=== PATIENT | female | born 1930 | race Caucasian/White ===

== ENCOUNTER 2016-04-27 09:06 | Outpatient (CLI) | payer MEDICARE, OTHER ==
[2016-04-27 12:35] LABS: #Basophils 0.1 thou/uL (0.0-0.2); #Eosinphils 0.2 thou/uL (0.0-0.7); #Lymphocytes 0.6 thou/uL (1.20-3.40); #Monocytes 0.5 thou/uL (0.11-0.59); %Basophils 0.9 % (0.0-1.0); %Lymphocytes 9.5 % (21.0-51.0); %Monocytes 7.8 % (0.0-10.0); %Neutrophils 78.8 % (42.0-75.0); Mean Corpuscular Hemoglobin 25.5 pg (27.0-31.0); Mean Corpuscular Volume 82.2 fl (81.0-99.0); Mean Platelet Volume 6.5 fL (7.4-10.4); Platelet Count 252 thou/uL (130-400); RBC Distribution Width 14.4 % (11.5-14.5); White Blood Cell (WBC) Count 6.4 thou/uL (4.8-10.8)
[2016-04-27 12:57] LABS: ALT (SGPT) 10 U/L (0-55); AST (SGOT) 15 U/L (5-34); Albumin 3.6 g/dL (3.4-4.8); Alkaline Phosphatase 83 U/L (40-150); Anion Gap 14 mmol/L (10-20); BUN (Urea Nitrogen) 26 mg/dL (9.8-20.1); Bilirubin, Direct 0.2 mg/dL (0.1-0.3); Bilirubin, Total 0.3 mg/dL (0.2-1.2); Calc. Creatinine Clearance 0 mL/min (70-130); Calcium 8.8 mg/dL (7.8-10.44); Carbon Dioxide 30 mmol/L (23-31); Cardiac Risk 3.4 (Less than 4.5); Chloride 98 mmol/L (98-107); Cholesterol 151 mg/dL (< 200 Desired); Estimated GFR-MDRD 80; Glucose 97 mg/dL (83-110); HDL Cholesterol 44 mg/dL (>60 Neg Risk); LDL Cholesterol, Calculated 86 mg/dL; Potassium 4.4 mmol/L (3.5-5.1); Protein, Total 7.1 g/dL (5.8-8.1); Sodium 138 mmol/L (136-145); Triglycerides 106 mg/dL (Less than 150)
[2016-04-27 13:06] LABS: Hemoglobin A1c 5.8 % (4.0-6.0)
== END 2016-04-27 09:07 | disposition home or self-care (01) ==
LOC: NAVSJIPCSP 09:06
PROVIDERS: ATTEND Family Medicine
DX: I10 Essential (primary) hypertension (principal)
CPT/HCPCS: 36415; 80048; 80061; 80076; 83036; 84443; 85025

== ENCOUNTER 2016-08-26 10:20 | Outpatient (CLI) | payer MEDICARE, OTHER ==
[2016-08-26 12:47] LABS: ALT (SGPT) 9 U/L (8-55); AST (SGOT) 16 U/L (5-34); Albumin 3.6 g/dL (3.4-4.8); Alkaline Phosphatase 85 U/L (40-150); Anion Gap 15 mmol/L (10-20); BUN (Urea Nitrogen) 29 mg/dL (9.8-20.1); Bilirubin, Direct 0.2 mg/dL (0.1-0.3); Bilirubin, Total 0.4 mg/dL (0.2-1.2); Calc. Creatinine Clearance 0 mL/min (70-130); Calcium 9.3 mg/dL (7.8-10.44); Carbon Dioxide 29 mmol/L (23-31); Cardiac Risk 3.4 (Less than 4.5); Chloride 97 mmol/L (98-107); Cholesterol 137 mg/dl (< 200 Desired); Estimated GFR-MDRD 82; Glucose 103 mg/dL (83-110); HDL Cholesterol 40 mg/dL (>60 Neg Risk); LDL Cholesterol, Calculated 79 mg/dL; Potassium 4.7 mmol/L (3.5-5.1); Sodium 136 mmol/L (136-145); Triglycerides 89 mg/dL (Less than 150)
[2016-08-26 13:58] LABS: #Basophils 0.1 thou/uL (0.0-0.2); #Eosinphils 0.2 thou/uL (0.0-0.7); #Lymphocytes 0.5 thou/uL (1.20-3.40); #Monocytes 0.7 thou/uL (0.11-0.59); #Neutrophils 5.7 thou/uL (1.40-6.50); %Basophils 1.6 % (0.0-1.0); %Lymphocytes 7.1 % (21.0-51.0); %Monocytes 9.4 % (0.0-10.0); %Neutrophils 78.9 % (42.0-75.0); Hemoglobin 11.7 g/dL (12.0-16.0); Mean Corpuscular HGB CONC 30.8 g/dL (32.0-36.0); Mean Corpuscular Hemoglobin 24.9 pg (27.0-31.0); Mean Corpuscular Volume 80.8 fl (81.0-99.0); Mean Platelet Volume 7.3 fL (7.4-10.4); Platelet Count 268 thou/uL (130-400); RBC Distribution Width 13.6 % (11.5-14.5); Red Blood Cell (RBC) Count 4.71 mill/uL (4.20-5.40); White Blood Cell (WBC) Count 7.2 thou/uL (4.8-10.8)
[2016-08-26 13:59] LABS: Anisocytosis SLIGHT = 6-15 cells (100X) (0-5/hpf); MDiff Complete? YES; PLT Morphology Comment Appears Adequate
== END 2016-08-26 10:21 ==
LOC: NAVSJIPCSP 10:20
PROVIDERS: ATTEND Family Medicine
DX: E11.51 Type 2 diabetes mellitus with diabetic peripheral angiopathy without gangrene (principal); I10 Essential (primary) hypertension; H83.2X9 Labyrinthine dysfunction, unspecified ear; Z79.899 Other long term (current) drug therapy
CPT/HCPCS: 36415; 80048; 80061; 80076; 83036; 84443; 85025

== ENCOUNTER 2016-08-27 13:27 | Outpatient (CLI) | payer MEDICARE, OTHER ==
[2016-08-27 20:09] LABS: Bilirubin Negative (Negative); Blood, Urine Negative (Negative); Glucose, Urine (Dipstick) Negative (Negative); Leukocyte Moderate (Negative); Nitrite Positive (Negative); Protein, Urine (Dipstick) Negative (Neg-Trace); Specific Gravity, Urine 1.015 (1.005-1.030); Urobilinogen 0.2 mg/dL (0.2-1.0); pH, Urine 6.5 (5.0-9.0)
[2016-08-27 20:31] LABS: Clarity SL HAZY (Clear)
[2016-08-27 20:43] LABS: Bacteria/HPF 4+ HPF (None Seen)
== END 2016-08-27 13:28 | disposition home or self-care (01) ==
LOC: NAVSJIPCSP 13:27
PROVIDERS: ATTEND Family Medicine
DX: E11.51 Type 2 diabetes mellitus with diabetic peripheral angiopathy without gangrene (principal); H83.2X9 Labyrinthine dysfunction, unspecified ear; I10 Essential (primary) hypertension; Z79.899 Other long term (current) drug therapy
CPT/HCPCS: 81003; 81015

== ENCOUNTER 2017-09-08 00:46 | Emergency (ER) | payer MEDICARE, OTHER ==
[2017-09-08] MEDS ORDERED: Lidocaine 1% w/Epinephrine 1:100K 30 ML VIAL ONE (01:26)
[2017-09-08] MEDS ORDERED: Meclizine HCl 25 MG TAB ONE (02:07)
== END 2017-09-08 02:13 | disposition home or self-care (01) ==
LOC: NAV ERS 00:46
DX: S51.011A Laceration without foreign body of right elbow, initial encounter (principal); W18.30XA Fall on same level, unspecified, initial encounter
CPT/HCPCS: 99282; J2001

== ENCOUNTER 2018-02-05 12:11 | Emergency (ER) | payer MEDICARE, OTHER ==
[2018-02-05] MEDS ORDERED: Bacitracin Zinc 1 Packet ONE (12:27)
--- NOTE | 2018-02-05 14:46 | CT ---
NONCONTRAST CT HEAD: DATE: 02/05/2018. HISTORY: Injury. The patient fell 7 hours ago and hit forehead. Neck pain. COMPARISON: 01/17/2015. FINDINGS: Again noted is decreased attenuation in the periventricular white matter likely attributable to chron ic small-vessel ischemic changes. Linear low-density area in the right lentiform nucleus is likely r elated to remote lacunar infarction. There is no evidence of an acute cortical infarction, hemorrhag e, mass effect, or midline shift. Mild cerebral volume loss is present. The ventricular system is n ormal in size, shape, and position for the degree of sulcal atrophy. There is mucosal thickening seen in several ethmoidal air cells bilaterally. Minimal mucosal thicken ing is seen in each maxillary antrum. Mastoid air cells are clear. No calvarial fracture is identif ied. There is scalp soft tissue swelling in the anterior frontal region greater just to the right of midline. No depressed calvarial fracture is seen. IMPRESSION: 1. No acute intracranial abnormality is demonstrated. 2. Chronic small-vessel ischemic changes and cerebral volume loss. 3. 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 4. Sinus disease. 5. Anterior frontal scalp hematoma. POS: [facility]
--- NOTE | 2018-02-05 14:50 | CT ---
CT CERVICAL SPINE NONCONTRAST: HISTORY: Fall. Neck injury. COMPARISON: 04/21/2013. FINDINGS: Vertebral body heights are maintained. Minimal degenerative spondylolisthesis at the C3-4 level is a gain demonstrated. Osteophytosis throughout the vertebral bodies and facets. No acute fracture or d islocation. Cervicothoracic junction is intact. IMPRESSION: Degenerative changes cervical spine. No acute osseous abnormalities are demonstrated. POS: [facility]
--- NOTE | 2018-02-05 15:23 | RAD ---
LEFT ELBOW 2 VIEWS: HISTORY: Fall. Left elbow injury. FINDINGS: Radiocapitellar alignment is maintained. Soft tissue laceration may be present posteriorly. Mild os teophytosis. No displaced fractures are apparent. Osseous structures are demineralized. IMPRESSION: 1. Osteoporosis. Mild degenerative changes. 2. No acute osseous abnormalities are demonstrated. POS: [facility]
== END 2018-02-05 13:49 | disposition home or self-care (01) ==
LOC: NAV ERS 12:11
DX: S01.01XA Laceration without foreign body of scalp, initial encounter (principal); S51.012A Laceration without foreign body of left elbow, initial encounter; I10 Essential (primary) hypertension; E11.39 Type 2 diabetes mellitus with other diabetic ophthalmic complication; H42 Glaucoma in diseases classified elsewhere; Z86.73 Personal history of transient ischemic attack (TIA), and cerebral infarction without residual deficits; Z79.899 Other long term (current) drug therapy; Z79.84 Long term (current) use of oral hypoglycemic drugs; Z87.891 Personal history of nicotine dependence; W22.03XA Walked into furniture, initial encounter
CPT/HCPCS: 70450; 72125

== ENCOUNTER 2018-07-25 22:01 | Emergency (ER) | payer MEDICARE, OTHER | END 2018-07-25 22:56 | disposition home or self-care (01) | LOC: NAV ERS 22:01 | DX: S51.811A Laceration without foreign body of right forearm, initial encounter (principal); I10 Essential (primary) hypertension; E11.9 Type 2 diabetes mellitus without complications; W26.8XXA Contact with other sharp object(s), not elsewhere classified, initial encounter; Z86.73 Personal history of transient ischemic attack (TIA), and cerebral infarction without residual deficits ==

== ENCOUNTER 2019-03-09 20:15 | Inpatient (IN) | payer MEDICARE, OTHER ==
[2019-03-09 20:52] VITALS: BMI 28.0
[2019-03-09] MEDS ORDERED: Bisacodyl 10 MG SUPP PR PRN (22:06)
[2019-03-09] MEDS ORDERED: Artificial Tear Sol 15 ML BOT EA EYE PRN (22:06)
[2019-03-09] MEDS ORDERED: cloNIDine 0.1 MG TAB PO PRN (22:07)
[2019-03-09] MEDS ORDERED: traZODone HCl 50 MG TAB PO SCH (22:15)
[2019-03-09] MEDS ORDERED: Timolol 0.5% Ophth Soln 5 ml Bottle EA EYE SCH (22:15)
[2019-03-09] MEDS ORDERED: Carvedilol 25 MG TAB PO SCH (22:15)
[2019-03-09] MEDS ORDERED: Latanoprost 0.005% Ophth Soln 2.5 ml Bottle EA EYE SCH (22:15)
[2019-03-10 05:21] LABS: #Basophils 0.1 thou/uL (0.0-0.2); #Eosinphils 0.1 thou/uL (0.0-0.7); #Lymphocytes 0.4 thou/uL (1.20-3.40); #Monocytes 0.7 thou/uL (0.11-0.59); #Neutrophils 6.3 thou/uL (1.40-6.50); %Basophils 0.7 % (0.0-1.0); %Lymphocytes 5.1 % (21.0-51.0); %Monocytes 9.6 % (0.0-10.0); %Neutrophils 83.6 % (42.0-75.0); Hemoglobin 9.8 g/dL (12.0-16.0); Mean Corpuscular HGB CONC 31.4 g/dL (32.0-36.0); Mean Corpuscular Hemoglobin 25.1 pg (27.0-31.0); Mean Corpuscular Volume 80.1 fL (78.0-98.0); Mean Platelet Volume 6.6 fL (7.4-10.4); Platelet Count 233 thou/uL (130-400); RBC Distribution Width 14.4 % (11.5-14.5); Red Blood Cell (RBC) Count 3.91 mill/uL (4.20-5.40); White Blood Cell (WBC) Count 7.6 thou/uL (4.8-10.8)
[2019-03-10 05:31] LABS: ALT (SGPT) 19 U/L (8-55); AST (SGOT) 22 U/L (5-34); Albumin 2.9 g/dL (3.4-4.8); Alkaline Phosphatase 55 U/L (40-110); Anion Gap 15 mmol/L (10-20); BUN (Urea Nitrogen) 8 mg/dL (9.8-20.1); Bilirubin, Total 0.6 mg/dL (0.2-1.2); Calc. Creatinine Clearance 80 mL/min (70-130); Calcium 8.1 mg/dL (7.8-10.44); Carbon Dioxide 25 mmol/L (23-31); Chloride 96 mmol/L (98-107); Estimated GFR-MDRD Greater than 90; Glucose 127 mg/dL (83-110); Protein, Total 5.9 g/dL (6.0-8.3)
[2019-03-10 05:37] LABS: Sodium 133 mmol/L (136-145)
[2019-03-10 05:38] LABS: Potassium 2.6 mmol/L (3.5-5.1)
[2019-03-10] MEDS ORDERED: levETIRAcetam 500 MG TAB PO SCH (09:00)
[2019-03-10] MEDS: Amlodipine 5 MG TAB PO SCH (09:14)
[2019-03-10] MEDS: Carvedilol 25 MG TAB PO SCH ×2 (09:16→21:04)
[2019-03-10] MEDS: metFORMIN 500 MG TAB PO SCH ×3 (09:16→17:53)
[2019-03-10] MEDS: Lisinopril 20 MG TAB PO SCH ×2 (09:17→21:05)
[2019-03-10] MEDS: Timolol 0.5% Ophth Soln 5 ml Bottle EA EYE SCH ×2 (09:19→21:03)
[2019-03-10] MEDS: Potassium Chloride 20 MEQ TAB PO SCH ×2 (09:24→17:51)
[2019-03-10] MEDS ORDERED: Cyanocobalamin (Vitamin B-12) 1,000 MCG TAB PO SCH (12:00)
[2019-03-10] MEDS ORDERED: Bisacodyl 10 MG SUPP PR PRN (14:24)
[2019-03-10] MEDS ORDERED: OPTH EA EYE PRN (14:24)
[2019-03-10] MEDS ORDERED: ARTIFICIAL TEAR EA EYE PRN (14:24)
[2019-03-10] MEDS ORDERED: cloNIDine 0.1 MG TAB PO PRN (14:24)
[2019-03-10] MEDS ORDERED: [UNRECOGNIZED DRUG - OTHER] PO SCH (14:30)
[2019-03-10] MEDS ORDERED: Ondansetron ODT 4 MG TAB PO PRN (14:42)
[2019-03-10] MEDS ORDERED: Atorvastatin Calcium 10 MG TAB PO SCH (17:00)
[2019-03-10] MEDS ORDERED: metFORMIN 500 MG TAB PO SCH (17:00)
[2019-03-10] MEDS: Cyanocobalamin (Vitamin B-12) 1,000 MCG TAB PO SCH (17:52)
[2019-03-10] MEDS: Atorvastatin Calcium 10 MG TAB PO SCH (17:53)
[2019-03-10] MEDS ORDERED: Lisinopril 20 MG TAB PO SCH (21:00)
[2019-03-10] MEDS ORDERED: traZODone HCl 50 MG TAB PO SCH (21:00)
[2019-03-10] MEDS ORDERED: Timolol 0.5% Ophth Soln 5 ml Bottle EA EYE SCH (21:00)
[2019-03-10] MEDS ORDERED: Carvedilol 25 MG TAB PO SCH (21:00)
[2019-03-10] MEDS: Latanoprost 0.005% Ophth Soln 2.5 ml Bottle EA EYE SCH (21:02)
[2019-03-10] MEDS: traZODone HCl 50 MG TAB PO SCH (21:03)
[2019-03-10] MEDS: levETIRAcetam 500 MG TAB PO SCH (21:03)
[2019-03-11] MEDS ORDERED: Non-Formulary Item 1 EACH (Cholecalciferol (Vitamin D3) [Vitamin D] 1,000 UNIT) PO SCH (09:00)
[2019-03-11] MEDS ORDERED: Amlodipine 5 MG TAB PO SCH (09:00)
[2019-03-11] MEDS ORDERED: Non-Formulary Item 1 EACH (Sertraline Hcl [Zoloft] 50 MG) PO SCH (09:00)
[2019-03-11] MEDS ORDERED: Latanoprost 0.005% Ophth Soln 2.5 ml Bottle EA EYE SCH (09:00)
[2019-03-11] MEDS: metFORMIN 500 MG TAB PO SCH ×3 (10:10→17:39)
[2019-03-11] MEDS: Potassium Chloride 20 MEQ TAB PO SCH ×2 (10:11→17:39)
[2019-03-11] MEDS: Amlodipine 5 MG TAB PO SCH (10:12)
[2019-03-11] MEDS: Carvedilol 25 MG TAB PO SCH ×2 (10:13→20:39)
[2019-03-11] MEDS: Lisinopril 20 MG TAB PO SCH ×2 (10:19→20:39)
[2019-03-11] MEDS: levETIRAcetam 500 MG TAB PO SCH ×2 (10:20→20:40)
[2019-03-11] MEDS: Timolol 0.5% Ophth Soln 5 ml Bottle EA EYE SCH ×2 (10:20→20:39)
[2019-03-11] MEDS ORDERED: Famotidine 20 MG TAB PO SCH (11:00)
--- NOTE | 2019-03-11 11:01 | PRG ---
DATE OF SERVICE: 03/11/2019 SUBJECTIVE: Ms. Delcid is resting in bed and has her eyes open, but is nonverbal. Her family is in the room, and they state that this is baseline for her at present. She pretty good encouragement. No other concerns or questions. OBJECTIVE: VITAL SIGNS: She is afebrile. Heart rate 97, respirations 18, oxygen saturation 93% on room air, and blood pressure 163/73. CARDIOVASCULAR SYSTEM: S1 and S2 plus. RESPIRATORY SYSTEM: Normal vesicular breath sounds heard in all lung allan. ABDOMEN: Soft, nontender. Bowel sounds heard in all quadrants. EXTREMITIES: Without cyanosis or clubbing. CENTRAL NERVOUS SYSTEM: Awake, but nonverbal. Does follow simple commands. IMPRESSION: 1. Left subdural hematoma and multiple intracranial hemorrhages due to fall. 2. History of right-sided cerebrovascular accident. 3. Diabetes mellitus type 2. 4. Hypertension. 5. Dyslipidemia. 6. Anxiety and depression. PLAN: 1. Continue current medications. 2. 1800-calorie heart-healthy ADA diet with aspiration precautions. 3. Oral hygiene. 4. PlexiPulses. 5. Seizure precautions. 6. Monitor neuro status. 7. Physical therapy. 8. DVT prophylaxis with PlexiPulses. 9. Decubitus precautions. 10. Stress ulcer prophylaxis. We will add Pepcid. 11. Hypokalemia. She is on potassium b.i.d. We will recheck levels tomorrow. Discussed with the patient and family in detail. All questions answered. Job ID: [id number]
[2019-03-11] MEDS: Atorvastatin Calcium 10 MG TAB PO SCH (17:39)
[2019-03-11] MEDS: traZODone HCl 50 MG TAB PO SCH (20:39)
[2019-03-11] MEDS: Latanoprost 0.005% Ophth Soln 2.5 ml Bottle EA EYE SCH (20:39)
[2019-03-11] MEDS: Famotidine 20 MG TAB PO SCH (20:40)
[2019-03-12 05:26] LABS: #Basophils 0.1 thou/uL (0.0-0.2); #Eosinphils 0.1 thou/uL (0.0-0.7); #Lymphocytes 0.5 thou/uL (1.20-3.40); #Monocytes 1.1 thou/uL (0.11-0.59); %Basophils 0.9 % (0.0-1.0); %Eosinophils 0.9 % (0.0-10.0); %Lymphocytes 5.5 % (21.0-51.0); %Monocytes 10.8 % (0.0-10.0); %Neutrophils 82.1 % (42.0-75.0); Hemoglobin 10.1 g/dL (12.0-16.0); Mean Corpuscular HGB CONC 31.7 g/dL (32.0-36.0); Mean Corpuscular Hemoglobin 25.2 pg (27.0-31.0); Mean Corpuscular Volume 79.4 fL (78.0-98.0); Mean Platelet Volume 6.6 fL (7.4-10.4); Platelet Count 262 thou/uL (130-400); RBC Distribution Width 14.3 % (11.5-14.5); White Blood Cell (WBC) Count 9.8 thou/uL (4.8-10.8)
[2019-03-12 05:38] LABS: Anion Gap 16 mmol/L (10-20); BUN (Urea Nitrogen) 14 mg/dL (9.8-20.1); Calc. Creatinine Clearance 73 mL/min (70-130); Calcium 8.9 mg/dL (7.8-10.44); Carbon Dioxide 25 mmol/L (23-31); Chloride 98 mmol/L (98-107); Estimated GFR-MDRD Greater than 90; Glucose 117 mg/dL (83-110); Potassium 3.3 mmol/L (3.5-5.1); Sodium 136 mmol/L (136-145)
[2019-03-12] MEDS: Lisinopril 20 MG TAB PO SCH ×2 (08:36→21:10)
[2019-03-12] MEDS: Carvedilol 25 MG TAB PO SCH ×2 (08:37→21:10)
[2019-03-12] MEDS: levETIRAcetam 500 MG TAB PO SCH ×2 (08:37→21:10)
[2019-03-12] MEDS: Potassium Chloride 20 MEQ TAB PO SCH ×2 (08:37→17:17)
[2019-03-12] MEDS: Famotidine 20 MG TAB PO SCH ×2 (08:37→21:10)
[2019-03-12] MEDS: metFORMIN 500 MG TAB PO SCH ×3 (08:38→17:16)
[2019-03-12] MEDS: Amlodipine 5 MG TAB PO SCH (08:39)
[2019-03-12] MEDS: Timolol 0.5% Ophth Soln 5 ml Bottle EA EYE SCH ×2 (08:41→21:07)
--- NOTE | 2019-03-12 12:41 | PRG ---
DATE OF SERVICE: 03/12/2019 SUBJECTIVE: Ms. Delcid is sleeping. She really is not responding to any verbal stimuli. She does open her eyes when I touch her. Family states that she hardly ate anything. They also feel like the oxygen via the nasal cannula is irritating her. Plan is to remove the oxygen and monitor her saturation. Family is also going to decide on whether they want any alternative means of feeding or they want to focus on comfort. Dr. Phelps will be back tomorrow. OBJECTIVE: VITAL SIGNS: She is afebrile, heart rate 80, and respirations 20. Oxygen saturation 96% on 2 L, but it has been removed, we will see how her room air saturation is. Blood pressure 140/68. CARDIOVASCULAR SYSTEM: S1 and S2 plus. RESPIRATORY SYSTEM: Normal vesicular breath sounds. ABDOMEN: Soft and nontender. Bowel sounds heard in all quadrants. EXTREMITIES: Without cyanosis or clubbing. CENTRAL NERVOUS SYSTEM: Response on and off to stimuli. IMPRESSION: 1. Left subdural hematoma and multiple intracranial hemorrhages due to fall. 2. Diabetes mellitus, type 2. 3. Hypertension. 4. Dyslipidemia. 5. Anxiety and depression. 6. Poor p.o. intake. PLAN: 1. Continue current medications. 2. 1800-calorie heart healthy ADA diet with aspiration precautions. 3. Hold metformin until her p.o. intake is better. 4. Oral hygiene. 5. PlexiPulses. 6. Await family decision. 7. Discussed with all in detail. LABORATORY DATA: White count is 9.8, hemoglobin and hematocrit are 10.1 and 31.7. Sodium 136, potassium 3.3, BUN and creatinine are 14 and 0.57. Blood sugars are 139, 129, and 139. We will order a BMP for tomorrow. Job ID: [id number]
[2019-03-12] MEDS: Cyanocobalamin (Vitamin B-12) 1,000 MCG TAB PO SCH (13:51)
[2019-03-12] MEDS: Acetaminophen 500 MG TAB PO PRN ×2 (13:51→21:10)
[2019-03-12] MEDS: Atorvastatin Calcium 10 MG TAB PO SCH (17:18)
[2019-03-12] MEDS: traZODone HCl 50 MG TAB PO SCH (21:09)
[2019-03-12] MEDS: Latanoprost 0.005% Ophth Soln 2.5 ml Bottle EA EYE SCH (21:09)
[2019-03-13 05:33] LABS: Anion Gap 17 mmol/L (10-20); BUN (Urea Nitrogen) 15 mg/dL (9.8-20.1); Calc. Creatinine Clearance 77 mL/min (70-130); Calcium 8.9 mg/dL (7.8-10.44); Carbon Dioxide 27 mmol/L (23-31); Chloride 99 mmol/L (98-107); Estimated GFR-MDRD Greater than 90; Glucose 123 mg/dL (83-110); Potassium 3.5 mmol/L (3.5-5.1); Sodium 139 mmol/L (136-145)
--- NOTE | 2019-03-13 07:52 | HP ---
HISTORY OF PRESENT ILLNESS: The patient is a well-developed, well-nourished, pleasant 88-year-old white female, who was at home when she fell. She hit the back of her head and was brought to [facility], where she was noted to have a subdural hematoma along with bilateral frontal intraparenchymal hemorrhage and subarachnoid hemorrhage. She ended up having 4 sutures leda in a posterior occiput. She admitted to Dr. Rios, watched overnight in ICU and transferred to the floor. Repeat CT scan revealed a blooming of the intraparenchymal hemorrhage. It was noted the patient has been on aspirin and Plavix for previous stroke after failure of aspirin alone. She is very hard of hearing, but nonetheless, she was stabilized and actually has fairly well. Her cognition is slowly increased. It is noted that she is a DNR. She was stabilized, now transferred to [facility] for Physical therapy, Occupational therapy, and Speech therapy to increase her strength, stamina, and swallowing. PAST MEDICAL HISTORY: Positive for hypertension, diabetes, stroke, colon cancer in 1981, vertebral compression fracture of T9 and T10, GERD, diabetes type 2, and deconditioning. PAST SURGICAL HISTORY: Positive for hysterectomy, colon resection in 1981 secondary to colon cancer, bilateral knee replacements, pinning of a femoral neck fracture, foot surgery, and tonsillectomy. FAMILY HISTORY: Reveals the patient's father at age 68. He had prostate cancer. The patient's mother at age 86. She had colon cancer. The patient had 3 sisters, all with lung cancer, rheumatoid arthritis, and NC. She had a brother who at age 94 with some type of cancer. She has a son, who had precancerous cells in his colon. She has 3 daughters, whom are alive and one had colon cancer. Family history is positive for hypertension, heart disease, and cancer and rheumatoid arthritis. SOCIAL HISTORY: Reveals the patient did not smoke, does not drink, and lives alone, but has a daughter is living next door and nearby. She is . ALLERGIES: REVEAL SHE IS ALLERGIC TO SULFA, CODEINE, COUMADIN, GENTAMICIN, AND CLAMS. MEDICATIONS: She was transferred to [facility] on include the following, 1. Amlodipine 10 mg daily. 2. Artificial Tears one drop in each eye p.r.n. 3. Atorvastatin 10 mg at bedtime. 4. Dulcolax suppository p.r.n. 5. Carvedilol 25 mg b.i.d. 6. Vitamin D3 1000 units daily. 7. Clonidine 0.1 mg t.i.d. p.r.n. elevated blood pressure greater than 170. 8. Xalatan 0.005% ophthalmic drops one drop each eye daily. 9. Keppra 250 mg twice a day for 7 days. 10. Lisinopril 20 mg b.i.d. 11. Metformin 500 mg t.i.d. with meals. 12. Sertraline 50 mg each morning. 13. Timolol eyedrops 0.5% ophthalmic one drop each eye b.i.d. 14. Trazodone 50 mg at bedtime. 15. Vitamin B12 one every two days. REVIEW OF SYSTEMS: CONSTITUTIONAL: The patient is awake, recognizes me, and is able to answer some questions, but is very lethargic and weak. She has 2 daughters at bedside to help answer her questions. She has not had fever or chills, although, she is very weak and fatigued and has headaches from her concussion. HEENT: Denies any visual changes or hearing loss, but she is extremely hard of hearing and has hearing aids bilaterally. Her left ear has been bleeding because the hearing aid scratched her ear canal. RESPIRATORY: Denies any respiratory problems, cough, cold, or wheezing. Denies any chest pain, significant edema, or dyspnea on exertion. GI: Complains of poor appetite at this time and not wanting to eat. No melena is noted. The patient does have some mild dysphagia and aphasia and is on a honey thickened liquid diet. Denies any abdominal pain, bloody stools or black tarry stools. : Denies any urgency, frequency, dysuria. MUSCULOSKELETAL: She is extremely weak and has some residual weakness from her prior stroke. NEUROLOGIC: She is alert and oriented to person and place, but not time. PHYSICAL EXAMINATION: VITAL SIGNS: Reveal blood pressure is elevated on admission 171/79, pulse 95, respirations 20, O2 saturations 97% on 2 L, T-max 96.7. GENERAL: This is a well-developed, well-nourished, elderly white female, who I have known for approximately 25 to 30 years. HEENT: Normocephalic and nontraumatic cranium except for where she has her abrasion in the left posterior occiput, which has 4 leda. Nose and throat are dry. NECK: Somewhat achy, stiff in the back, but supple. No jugular venous distention is noted. CHEST: Clear to auscultation. No rales, no rhonchi, no wheezes are heard. No cough is heard. Breath sounds are distant and shallow. HEART: Reveals a regular rate and rhythm without murmurs, gallops, or rubs. ABDOMEN: Soft, nontender without organomegaly. Normal bowel sounds are noted. No rebound or guarding is noted. : Deferred. EXTREMITIES: Reveal no clubbing, cyanosis, or edema. SKIN: Reveals again 4 leda in the posterior scalp. NEUROLOGIC: The patient is talkative to me and will answer questions, but very sleepy. She does remember my name and says it accurately. She denies any pain at this time. 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 ASSESSMENT: 1. Left subdural hematoma overlying the left frontal parietal lobes measuring approximately 9 mm with parenchymal contusion on the left greater than the right rastafari area, temporal lobes along with a subdural hemorrhage extending along the anterior falx and right posterior tentorium. There is subdural subarachnoid hemorrhage overlying the right inferior frontal lobe. There is mild mass effect along the left frontal parietal lobe with minimal left midline shift measuring up to 3 mm. Mild effacement of left lateral ventricle without significant change in the size of the ventricle. 2. Type 2 diabetes. 3. Hypertension. 4. Hyperlipidemia. 5. History of prior cerebrovascular accident with residual left-sided weakness. 6. Gastroesophageal reflux disease. 7. Very hard of hearing. 8. Prior history of compression fracture of the lumbar spine. 9. Generalized deconditioning. 10. Pain management. PLAN: 1. The patient is admitted at this time. 2. We will continue to follow the patient neurologically. 3. Continue present medications that were transferred over from [facility]. 4. Stress ulcer prophylaxis. 5. Decubitus precautions. 6. No anticoagulation at this time secondary to the patient's bleed. 7. Physical Therapy and Occupational Therapy. 8. Speech Therapy. Job ID: [id number]
[2019-03-13] MEDS: metFORMIN 500 MG TAB PO SCH ×3 (08:52→16:47)
[2019-03-13] MEDS: Famotidine 20 MG TAB PO SCH ×2 (08:52→21:37)
[2019-03-13] MEDS: Carvedilol 25 MG TAB PO SCH ×2 (08:53→21:37)
[2019-03-13] MEDS: levETIRAcetam 500 MG TAB PO SCH ×2 (08:54→21:36)
[2019-03-13] MEDS: Amlodipine 5 MG TAB PO SCH (08:55)
[2019-03-13] MEDS: Lisinopril 20 MG TAB PO SCH ×2 (08:57→21:38)
[2019-03-13] MEDS: Timolol 0.5% Ophth Soln 5 ml Bottle EA EYE SCH ×2 (09:00→22:15)
[2019-03-13] MEDS: Acetaminophen 500 MG TAB PO PRN (16:42)
[2019-03-13] MEDS: Atorvastatin Calcium 10 MG TAB PO SCH (16:42)
--- NOTE | 2019-03-13 18:48 | PRG ---
DATE OF SERVICE: 03/13/2019 SUBJECTIVE: Ms. Delcid is an 88-year-old white female, who was at home when she fell hitting the back of her head. She was noted to have subdural hematoma along with bilateral frontal intraparenchymal hemorrhages and subarachnoid hemorrhage. She was observed in ICU overnight, eventually transferred to the floor, and now transferred to [facility] for physical therapy and occupational therapy. The patient is awake this morning and answers questions fairly well. She is not hungry, does not really want to eat or drink. We had a long discussion with 2 of the daughters and decided to put her on some Megace, which we will start this evening. Family does not want to give her a PEG tube or NG tube. The patient states she is just not hungry, and family discussion is around whether it is time to do hospice or not. They want to see if the Megace works or not and then may decide to do hospice at that time. PHYSICAL EXAMINATION: GENERAL: Today, this is a well-developed, well-nourished, thin, white female, in no apparent distress at this time. HEENT: Reveals normocephalic and nontraumatic cranium. Pupils are equally round. Extraocular movements are intact. Nose and throat are slightly dry, but clear. NECK: Supple without masses, nodes, or bruits. CHEST: Clear to auscultation. No rales, rhonchi, or wheezes are heard. HEART: Reveals a regular rate and rhythm without murmurs, gallops, or rubs. ABDOMEN: Soft and nontender. Normal bowel sounds are heard in all 4 quadrants. No rebound or guarding is noted. : Deferred. EXTREMITIES: Reveal no clubbing, cyanosis, or edema. NEUROLOGIC: The patient does respond to my voice this morning and does answer questions, although she looks a little confused at times. IMPRESSION: 1. Left subdural hematoma, multiple intracranial hemorrhages along with subarachnoid hemorrhage. 2. Diabetes, type 2. 3. Hypertension. 4. Hyperlipidemia. 5. Anxiety and depressive disorder. 6. Very poor p.o. intake yesterday. 7. Very hard of hearing. 8. Prior history of compression fracture with back pain. 9. Generalized weakness. 10. Pain management. PLAN: 1. Continue to monitor the patient's sugars, and with her p.o. intake improves, restart her metformin. 2. PlexiPulses. 3. Continue to encourage the patient to eat. 4. Continue present medications. 5. Pain management. 6. Stress ulcer prophylaxis. 7. Decubitus precautions. 8. We will try Megace 400 mg liquid b.i.d. 9. Observe the patient's results. Job ID: [id number]
[2019-03-13] MEDS ORDERED: Ibuprofen 100 MG/5 ML UDCUP PO SCH (19:15)
[2019-03-13] MEDS: Latanoprost 0.005% Ophth Soln 2.5 ml Bottle EA EYE SCH (21:36)
[2019-03-13] MEDS: Megestrol Acetate 400 MG/10 ML UDCUP PO SCH (21:36)
[2019-03-13] MEDS: traZODone HCl 50 MG TAB PO SCH (21:37)
[2019-03-14] MEDS: Carvedilol 25 MG TAB PO SCH ×2 (08:18→20:32)
[2019-03-14] MEDS: Lisinopril 20 MG TAB PO SCH ×2 (08:18→20:32)
[2019-03-14] MEDS: Amlodipine 5 MG TAB PO SCH (08:18)
[2019-03-14] MEDS: Famotidine 20 MG TAB PO SCH ×2 (08:18→20:32)
[2019-03-14] MEDS: levETIRAcetam 500 MG TAB PO SCH ×2 (08:19→20:31)
[2019-03-14] MEDS: Acetaminophen 500 MG TAB PO PRN (08:19)
[2019-03-14] MEDS: Megestrol Acetate 400 MG/10 ML UDCUP PO SCH ×2 (08:19→20:31)
[2019-03-14] MEDS: Timolol 0.5% Ophth Soln 5 ml Bottle EA EYE SCH ×2 (08:20→20:30)
[2019-03-14] MEDS: metFORMIN 500 MG TAB PO SCH ×3 (08:21→16:40)
[2019-03-14] MEDS ORDERED: Sodium Chloride 0.9% 500 ML IVPB SCH (10:45)
[2019-03-14] MEDS: Sodium Chloride 0.9% 1,000 ML IV SCH ×3 (11:12→22:54)
[2019-03-14] MEDS: Cyanocobalamin (Vitamin B-12) 1,000 MCG TAB PO SCH (14:45)
[2019-03-14] MEDS: Atorvastatin Calcium 10 MG TAB PO SCH (16:03)
[2019-03-14] MEDS: Latanoprost 0.005% Ophth Soln 2.5 ml Bottle EA EYE SCH (20:30)
[2019-03-14] MEDS: traZODone HCl 50 MG TAB PO SCH (20:31)
--- NOTE | 2019-03-14 22:09 | PRG ---
DATE OF SERVICE: 03/14/2019 SUBJECTIVE: Ms. Delcid is a very pleasant 88-year-old white female, who unfortunately fell backwards hitting her head. She was brought to the emergency room and found to have a subdural hematoma, bilateral frontal intraparenchymal hemorrhages, and a subarachnoid hemorrhage. She was admitted to the ICU for observation overnight, eventually transferred to the floor. She is now transferred to [facility] for PT and OT for continued care. The patient is not really wanting to eat very much. We did start her on some Megace, but that has not helped yet. She is eating like a bird and not drinking very much. She states she has had some headache in the right side and we started her on a fentanyl patch 25. We also started her on some IV fluids to help hydrate her. We will do labs again tomorrow morning. Family is at bedside and we had a long discussion about this does not help, we will consider hospice care. OBJECTIVE: VITAL SIGNS: This morning revealed blood pressure 153/70, pulse 80 to 104, respirations 20, O2 saturation 96% on 2 L nasal cannula, T-max 97.2. GENERAL: This is a well-developed, well-nourished, pleasant 88-year-old white female, who is obviously having some pain and complains of headache, pain on the side where her subdural is. HEENT: Reveals normocephalic and nontraumatic cranium. Pupils are equally round and reactive still. Extraocular movements are intact. Nose and throat are slightly dry, but clear. NECK: Supple without masses, nodes, or bruits. CHEST: Clear to auscultation. No rales, rhonchi, wheezes, or cough is heard. HEART: Reveals a regular rate and rhythm without murmurs, gallops, or rubs. ABDOMEN: Soft, nontender without organomegaly. Normal bowel sounds are noted in all 4 quadrants. No rebound or guarding is noted. GENITOURINARY: Exam is deferred. EXTREMITIES: Reveal no clubbing, cyanosis, or edema. NEUROLOGIC: The patient does respond to my voice, but is very weak and states she is just not hungry or thirsty. IMPRESSION: 1. Left subdural hematoma with multiple intracranial hemorrhages along with subarachnoid hemorrhage. 2. Diabetes, type 2. 3. Hypertension. 4. Hyperlipidemia. 5. Prior history of compression fracture with ongoing back pain. 6. Very hard of hearing. 7. Poor oral intake. 8. Anxiety and depressive disorder. 9. Pain management. 10. Generalized weakness. PLAN: 1. Start the patient on fentanyl patch 25 mcg strength and change q.3 days. 2. IV of normal saline. We will give a bolus of 500 mL and then 125 mL now. 3. Continue to encourage the patient to take her medications with applesauce, etc. 4. Megace b.i.d. 5. PlexiPulses. 6. Encourage the patient to eat and drink. 7. Continue other present medications. 8. Pain management. 9. Stress ulcer prophylaxis. 10. Decubitus precautions. 11. We will follow the patient closely and observe the results. 12. The patient does not seem to turn around. The family is considering hospice. Job ID: [id number]
[2019-03-15 05:59] LABS: #Basophils 0.1 thou/uL (0.0-0.2); #Eosinphils 0.1 thou/uL (0.0-0.7); #Lymphocytes 0.5 thou/uL (1.20-3.40); #Monocytes 0.8 thou/uL (0.11-0.59); #Neutrophils 8.6 thou/uL (1.40-6.50); %Basophils 1.4 % (0.0-1.0); %Eosinophils 1.2 % (0.0-10.0); %Monocytes 7.7 % (0.0-10.0); %Neutrophils 84.6 % (42.0-75.0); Hemoglobin 10.7 g/dL (12.0-16.0); Hypochromia SLIGHT = 6-15 cells (100X) (0-5/hpf); MDiff Complete? YES; Mean Corpuscular HGB CONC 30.7 g/dL (32.0-36.0); Mean Corpuscular Hemoglobin 24.8 pg (27.0-31.0); Mean Platelet Volume 6.2 fL (7.4-10.4); Microcytosis SLIGHT = 6-15 cells (100X) (0-5/hpf); Ovalocytes MODERATE= 6-15 cells (100X) (0-1/hpf); Platelet Count 334 thou/uL (130-400); Platelet Morphology Comment Appears Adequate; RBC Distribution Width 14.2 % (11.5-14.5); Tear Drops MODERATE= 6-15 cells (100X) (0-1/hpf); White Blood Cell (WBC) Count 10.2 thou/uL (4.8-10.8)
[2019-03-15 06:05] LABS: ALT (SGPT) 29 U/L (8-55); AST (SGOT) 26 U/L (5-34); Albumin 2.8 g/dL (3.4-4.8); Alkaline Phosphatase 72 U/L (40-110); Anion Gap 18 mmol/L (10-20); BUN (Urea Nitrogen) 10 mg/dL (9.8-20.1); Bilirubin, Total 0.5 mg/dL (0.2-1.2); Calc. Creatinine Clearance 80 mL/min (70-130); Calcium 8.3 mg/dL (7.8-10.44); Carbon Dioxide 26 mmol/L (23-31); Chloride 99 mmol/L (98-107); Estimated GFR-MDRD Greater than 90; Globulin 3.8 g/dL (2.4-3.5); Glucose 123 mg/dL (83-110); Protein, Total 6.6 g/dL (6.0-8.3); Sodium 140 mmol/L (136-145)
[2019-03-15 06:18] LABS: Potassium 2.5 mmol/L (3.5-5.1)
[2019-03-15] MEDS: NS 0.9% w/ 20 MEQ KCL 1,000 ML IV SCH ×3 (06:59→22:59)
[2019-03-15] MEDS: metFORMIN 500 MG TAB PO SCH ×3 (06:59→17:58)
[2019-03-15] MEDS: Megestrol Acetate 400 MG/10 ML UDCUP PO SCH ×2 (08:16→20:47)
[2019-03-15] MEDS: Timolol 0.5% Ophth Soln 5 ml Bottle EA EYE SCH ×2 (08:16→20:49)
[2019-03-15] MEDS: Carvedilol 25 MG TAB PO SCH ×2 (08:17→20:50)
[2019-03-15] MEDS: levETIRAcetam 500 MG TAB PO SCH ×2 (08:17→20:48)
[2019-03-15] MEDS: Lisinopril 20 MG TAB PO SCH ×2 (08:18→20:47)
[2019-03-15] MEDS: Famotidine 20 MG TAB PO SCH ×2 (08:18→20:50)
[2019-03-15] MEDS: Amlodipine 5 MG TAB PO SCH (08:19)
--- NOTE | 2019-03-15 12:17 | PRG ---
DATE OF SERVICE: 03/15/2019 Ms. Delcid is a very pleasant 88-year-old white female, who unfortunately fell backwards hitting her head. She was brought to the emergency room and found to have subdural hematoma, bilateral frontal intraparenchymal hemorrhages, and a subarachnoid hemorrhage. She was admitted to the ICU, observed overnight and eventually transferred to the floor. She was made a DNR, now transferred to [facility] for PT and OT and continued care. Yesterday, the patient had quite a bit of pain, was not able to eat anything, so we placed a fentanyl 25 mcg patch on her. Unfortunately, that made her sleepy, but her pain did not go away. She is not eating anything at this time and she is difficult to wake, so we will stop the fentanyl patch. The patient also had some lab work this morning, which revealed her potassium was low at 2.5, so we started some normal saline with 20 mEq of potassium. SUBJECTIVE: This morning, she is sleepy, but she will open her eyes when I talk with her. She smiles, but will not say any words, will not open her mouth, swallow medications or to eat or drink. OBJECTIVE: VITAL SIGNS: This morning reveal blood pressure 135/75, pulse 99 to 86, respirations 16, O2 saturation 97% on 2 L, and T-max 97.8. GENERAL: This is a well-developed, well-nourished, extremely pleasant, soft-spoken, white female, in no apparent distress at this time. HEENT: Reveals normocephalic and nontraumatic cranium. Pupils are equally round and reactive. Extraocular movements are intact. Nose and throat are slightly dry. NECK: Supple without masses, nodes, or bruits. CHEST: Clear to auscultation, but breath sounds are shallow. HEART: Reveals a regular rate and rhythm without murmurs, gallops, or rubs. ABDOMEN: Soft and nontender without organomegaly. Normal bowel sounds are noted in all 4 quadrants. No rebound or guarding is noted. : Deferred. EXTREMITIES: Reveal no clubbing, cyanosis, or edema. NEUROLOGIC: The patient is intact, but very weak. She opens her eyes to verbal stimulation, smiles, but does not speak or want to swallow. LABORATORY DATA: This morning revealed white count 10,200, hemoglobin 10.7, hematocrit 34.9, platelet count 304. Sodium 140, potassium 2.5, is being supplemented. Chloride 99, carbon dioxide 26 with a BUN of 10, and creatinine 0.52. IMPRESSION: 1. Left subdural hematoma with multiple intracranial hemorrhages along with a subarachnoid hemorrhage. 2. Diabetes type 2, stable. 3. Hypertension, stable. 4. Hyperlipidemia. 5. Prior history of compression fracture of the back with ongoing pain. 6. Very hard of hearing. 7. Poor oral intake. 8. Anxiety and depressive disorder. 9. Pain management. We will stop her fentanyl patch. 10. Generalized weakness. PLAN: 1. Fentanyl patch will be stopped at this time. 2. Continue IV normal saline with 20 of potassium. 3. Encourage the patient to take her medications. 4. Continue Megace b.i.d. 5. PlexiPulse. 6. Encourage the patient to eat and drink. 7. Continue other medications as she is able to swallow. 8. Stress ulcer prophylaxis. 9. Decubitus precautions. 10. Continue to monitor the patient closely. Job ID: [id number]
[2019-03-15] MEDS: Atorvastatin Calcium 10 MG TAB PO SCH (18:22)
[2019-03-15] MEDS: Latanoprost 0.005% Ophth Soln 2.5 ml Bottle EA EYE SCH (20:48)
[2019-03-15] MEDS: traZODone HCl 50 MG TAB PO SCH (20:50)
[2019-03-16 05:41] LABS: Anion Gap 18 mmol/L (10-20); BUN (Urea Nitrogen) 9 mg/dL (9.8-20.1); Calc. Creatinine Clearance 82 mL/min (70-130); Calcium 8.4 mg/dL (7.8-10.44); Carbon Dioxide 23 mmol/L (23-31); Chloride 101 mmol/L (98-107); Estimated GFR-MDRD Greater than 90; Glucose 118 mg/dL (83-110); Sodium 139 mmol/L (136-145)
[2019-03-16 05:54] LABS: Potassium 2.6 mmol/L (3.5-5.1)
[2019-03-16] MEDS: metFORMIN 500 MG TAB PO SCH ×3 (08:45→16:31)
[2019-03-16] MEDS: Megestrol Acetate 400 MG/10 ML UDCUP PO SCH ×2 (08:47→21:31)
[2019-03-16] MEDS: Amlodipine 5 MG TAB PO SCH (08:47)
[2019-03-16] MEDS: levETIRAcetam 500 MG TAB PO SCH ×2 (08:48→21:29)
[2019-03-16] MEDS: Carvedilol 25 MG TAB PO SCH ×3 (08:48→21:44)
[2019-03-16] MEDS: Lisinopril 20 MG TAB PO SCH ×2 (08:48→21:29)
[2019-03-16] MEDS: Famotidine 20 MG TAB PO SCH ×2 (08:48→21:30)
[2019-03-16] MEDS: Timolol 0.5% Ophth Soln 5 ml Bottle EA EYE SCH ×2 (08:49→21:30)
[2019-03-16] MEDS: Acetaminophen 500 MG TAB PO PRN (08:54)
[2019-03-16] MEDS: NS 0.9% w/ 20 MEQ KCL 1,000 ML IV SCH (10:00)
[2019-03-16] MEDS: Morphine 10 MG/0.5 ML ORAL SYRINGE SL PRN ×2 (10:02→16:31)
[2019-03-16] MEDS: Atorvastatin Calcium 10 MG TAB PO SCH (16:31)
[2019-03-16] MEDS: Cyanocobalamin (Vitamin B-12) 1,000 MCG TAB PO SCH (16:31)
--- NOTE | 2019-03-16 19:10 | PRG ---
DATE OF SERVICE: 03/16/2019 SUBJECTIVE: The patient is a very pleasant 88-year-old white female, who was at home when she fell backwards. She hit the back of her head. She was brought to the emergency room, was found to have a subdural hematoma, bilateral frontal intraparenchymal hemorrhages, and subarachnoid hemorrhage. She was admitted to the intensive care unit in [facility]. She was observed and eventually transferred to the floor when she was stabilized. She was made a DNR, now transferred to [facility] to see if physical therapy and occupational therapy can make a little stronger to go home. The patient yesterday had quite a bit of pain and we did give her fentanyl patch, but unfortunately that made her sleepy. This morning, we stopped that and she was having quite a bit more pain, so we added some morphine 10 mg q.2 hours p.r.n. The patient's blood work this morning was 2.6, so we continued her normal saline. She did eat about 2 cups of applesauce this morning and hopefully we will encourage her to eat throughout the day. She had 2 of her daughters present this morning. OBJECTIVE: VITAL SIGNS: Today reveal blood pressure this morning 159/74, pulse 85, respirations 19, O2 saturation 97% to 98% on 2 L nasal cannula, and T-max is 98.5. GENERAL: This is a very pleasant and very gentle 88-year-old white female, who recognizes me when I come into the room and smiles, but does not talk very much. I asked her 4 or 5 questions and she answered 1 or 2 with a yes or no, but very faintly. HEENT: Normocephalic and nontraumatic cranium. Pupils are equal, round, and reactive. Extraocular movements are intact. Nose and throat are dry. NECK: Supple without masses, nodes, or bruits. CHEST: Clear to auscultation. Breath sounds are noted to be distant shallow. HEART: Reveals a regular rate and rhythm without murmurs, gallops, or rubs. ABDOMEN: Soft, obese, and nontender without organomegaly. Normal bowel sounds are noted. No rebound or guarding is noted. : Deferred. EXTREMITIES: Reveal no clubbing, cyanosis, or edema. NEUROLOGIC: The patient is extremely weak. IMPRESSION: 1. Left subdural hematoma with multiple intracranial hemorrhages along with a subarachnoid hemorrhage. 2. Diabetes type 2. 3. Hypertension. 4. Hyperlipidemia. 5. History of compression fracture of the back. 6. Very hard of hearing. 7. Poor oral intake. 8. Anxiety and depressive disorder. 9. Pain management. 10. Generalized weakness. PLAN: 1. We stopped her fentanyl patch. 2. This morning, we added morphine or Roxanol 20 mg/mL. We will give her half mL sublingual q.2 hours p.r.n. severe pain. 3. Continue IV normal saline with potassium. 4. Continue to encourage the patient to take her medications. 5. Continue Megace b.i.d. 6. PlexiPulse. 7. Encourage the patient to eat and drink. 8. Continue medications that she is able swallow. 9. Stress ulcer prophylaxis. 10. Decubitus precautions. 11. Continue to monitor the patient closely. 12. We did speak with the family about hospice and they are considering if she does not improve in the next day or 2. Job ID: [id number]
[2019-03-16] MEDS: Latanoprost 0.005% Ophth Soln 2.5 ml Bottle EA EYE SCH (21:30)
[2019-03-16] MEDS: traZODone HCl 50 MG TAB PO SCH (21:32)
[2019-03-17] MEDS: NS 0.9% w/ 20 MEQ KCL 1,000 ML IV SCH ×2 (01:58→16:23)
[2019-03-17 05:55] LABS: Anion Gap 18 mmol/L (10-20); BUN (Urea Nitrogen) 8 mg/dL (9.8-20.1); Calc. Creatinine Clearance 84 mL/min (70-130); Calcium 8.6 mg/dL (7.8-10.44); Carbon Dioxide 24 mmol/L (23-31); Chloride 100 mmol/L (98-107); Estimated GFR-MDRD Greater than 90; Glucose 118 mg/dL (83-110); Sodium 139 mmol/L (136-145)
[2019-03-17 05:59] LABS: Potassium 2.5 mmol/L (3.5-5.1)
[2019-03-17] MEDS ORDERED: Morphine 10 MG/0.5 ML ORAL SYRINGE SL PRN (06:22)
[2019-03-17] MEDS: Famotidine 20 MG TAB PO SCH (09:41)
[2019-03-17] MEDS: Acetaminophen 500 MG TAB PO PRN (09:42)
[2019-03-17] MEDS: Carvedilol 25 MG TAB PO SCH (09:42)
[2019-03-17] MEDS: Megestrol Acetate 400 MG/10 ML UDCUP PO SCH (09:42)
[2019-03-17] MEDS: levETIRAcetam 500 MG TAB PO SCH (09:42)
[2019-03-17] MEDS: Amlodipine 5 MG TAB PO SCH (09:42)
[2019-03-17] MEDS: Lisinopril 20 MG TAB PO SCH (09:42)
[2019-03-17] MEDS: Timolol 0.5% Ophth Soln 5 ml Bottle EA EYE SCH (09:43)
--- NOTE | 2019-03-17 14:23 | DIS ---
DATE OF ADMISSION: 03/09/2019 DATE OF DISCHARGE: 03/17/2019 HISTORY: Ms. Delcid is a very pleasant 88-year-old white female, who was at home when she fell backwards. She hit the back of her head, was brought to the emergency room, found to have a subdural hematoma, bilateral frontal intraparenchymal hemorrhages and subarachnoid hemorrhage. Initially was admitted to the intensive care unit [facility]. She was eventually transferred to the floor and stabilized. Neurosurgery saw her and felt that she was extremely high risk for not surviving her surgery. She was made a DNR, but there was some hope that she would get stronger, so she was transferred to [facility] for physical therapy and occupational therapy. Yesterday, the patient did not do very well, did not need very well, and seemed to decline. Her potassium was low, so we started an IV and gave her some IV potassium. Over the evening and the overnight, she was unable to swallow her pills and actually drooled out the side. This morning, she was a little more awake, but again not able to swallow. It seems like the patient is actually taking a turn for the worst, is not verbal at all, just looks around. I talked with the family and basically the patient is slowly deteriorating. The family asked that we bring her to [facility], so they could bring her home and spend the last days with her there. PRESENT MEDICATIONS: Include the following. 1. The patient has been unable to swallow her Norvasc 10 daily. 2. The patient has been unable to swallow her Lipitor 10 nightly. 3. The patient has been unable to swallow her carvedilol 25 b.i.d. 4. The patient has been unable to swallow her Pepcid 20 b.i.d. 5. The patient did get her Keppra 250 in yesterday. 6. The patient has been unable to swallow her lisinopril 20 b.i.d. 7. The patient was able to get her Megace 400 mg b.i.d. in yesterday. 8. The patient has been unable to Zoloft 50 daily. 9. The patient is unable to take her trazodone 50 at bedtime. 10. The patient has had Roxanol 20 mg/mL and yesterday got a 10 mg dose, which is a little much, and then last night got a 5 mg dose. The patient also has Zofran 4 mg sublingual p.r.n. nausea and vomiting. ALLERGIES: THE PATIENT IS NOTED TO BE ALLERGIC TO CODEINE, GENTAMICIN, SULFA, SULFAMETHOXAZOLE, TRIMETHOPRIM, WARFARIN, AND CLAMS. PHYSICAL EXAMINATION: VITAL SIGNS: Today reveal blood pressure 139/85, pulse 85, respirations shallow at 16, O2 sats 92% at 2 L, and T-max 97.4. GENERAL: This is a well-developed, well-nourished, very pleasant 88-year-old white female, whom I have seen 3 times already this morning. The last time she was able to recognize me and barely smiled, but not verbalized. HEENT: Normocephalic and nontraumatic cranium. Pupils are equally round and reactive. Extraocular movements are intact. Nose and throat are very dry. NECK: Supple without masses, nodes or bruits. CHEST: Clear to auscultation. Breath sounds are noted to be distant, but shallow. Occasional dry hacking cough is noted. No rales, no rhonchi, no wheezes are noted. HEART: Regular rate and rhythm without murmurs, gallops or rubs. ABDOMEN: Soft, obese, nontender without organomegaly. Normal bowel sounds are noted in all 4 quadrants. No rebound or guarding is noted. : Deferred. EXTREMITIES: No clubbing, no cyanosis, no edema. NEUROLOGIC: The patient is extremely weak, but has no focal deficits. ASSESSMENT: 1. Left subdural hematoma with multiple intracranial hemorrhages along with a subarachnoid hemorrhage. 2. Diabetes type 2. 3. Hypertension. 4. Hyperlipidemia. 5. History of compression fracture of the back. 6. Very hard of hearing. 7. Poor oral intake. 8. Anxiety and depressive disorder. 9. Pain management. 10. Generalized weakness. PLAN: 1. For pain, the patient gets 5 mg of morphine sublingual. 2. We stopped the patient's Accu-Cheks. 3. After considerable discussion, the family decided to take the patient home. 4. I did contact [facility] for transfer to their service. 5. The family would like to bring the patient home today. 6. The patient has not been taking any of her medications except for pain medication and/or at times Zofran sublingual. 7. The patient is being discharged and will be followed by [facility]. Job ID: [id number]
[2019-03-17 15:52] VITALS: BP 184/81; TEMP 98.8
== END 2019-03-17 16:42 | disposition hospice, home (50) | DRG 949 ==
LOC: NAV ACUTE 20:15
PROVIDERS: ADMIT Family Medicine; ATTEND Family Medicine
DX: S06.5X9D Traumatic subdural hemorrhage with loss of consciousness of unspecified duration, subsequent encounter (principal); I69.354 Hemiplegia and hemiparesis following cerebral infarction affecting left non-dominant side; R53.1 Weakness; Z66 Do not resuscitate; I10 Essential (primary) hypertension; E11.9 Type 2 diabetes mellitus without complications; K21.9 Gastro-esophageal reflux disease without esophagitis; Z85.038 Personal history of other malignant neoplasm of large intestine; Z90.710 Acquired absence of both cervix and uterus; Z96.653 Presence of artificial knee joint, bilateral; S06.6X9D Traumatic subarachnoid hemorrhage with loss of consciousness of unspecified duration, subsequent encounter; F41.9 Anxiety disorder, unspecified; F32.9 Major depressive disorder, single episode, unspecified; E78.5 Hyperlipidemia, unspecified; Z90.89 Acquired absence of other organs; Z90.49 Acquired absence of other specified parts of digestive tract; Z88.5 Allergy status to narcotic agent; Z88.2 Allergy status to sulfonamides; Z88.8 Allergy status to other drugs, medicaments and biological substances; Z79.84 Long term (current) use of oral hypoglycemic drugs; Z79.899 Other long term (current) drug therapy; E87.6 Hypokalemia; F41.8 Other specified anxiety disorders
CPT/HCPCS: 36415; 36416; 80048; 80053; 83880; 84134; 85025; J3480; J7050